=== PATIENT | female | born 1995 | race Caucasian/White ===

== ENCOUNTER 2018-02-21 03:21 | Emergency (ER) | payer OTHER ==
[~2018-02-21] VITALS: Ht 167.6 cm; Wt 51.3 kg
[2018-02-21] MEDS ORDERED: PHENERGAN25 MG PO (06:29)
[2018-02-21] MEDS ORDERED: PEPCID AC20 MG PO (06:29)
== END 2018-02-21 06:32 | disposition home or self-care (01) ==
LOC: ER 03:21
DX: K52.9 Noninfective gastroenteritis and colitis, unspecified (principal)